=== PATIENT | female | born 1960 | race Hispanic/Latino ===

== ENCOUNTER 2023-07-18 11:45 | Emergency (ER) | payer MEDICARE, SELFPAY ==
[2023-07-18] VITALS (11 sets, daily range): BP systolic 123–160; BP diastolic 58–89; PULSE 67–87; RESP 14–23; TEMP 36.6; O2SAT 93–99; BMI 27.0
--- NOTE | 2023-07-18 11:57 | DI.RAD.S_ITS ---
PROCEDURE: XR CHEST 1V INDICATIONS: chest pain TECHNIQUE: One view of the chest was acquired. COMPARISON: None. FINDINGS: Surgical changes and devices: None. Lungs and pleura: Lungs are clear. No pleural effusions or pneumothorax. Mediastinum: Mediastinal contours appear normal. Heart size is normal. Bones and chest wall: No suspicious bony lesions. Overlying soft tissues appear unremarkable. IMPRESSION: Portable chest within normal limits for age. Dictated by: Jeannie Shaw M.D. on 07/18/2023 at 12:29 Approved by: Jeannie Shaw M.D. on 07/18/2023 at 12:29
[2023-07-18 12:57] LABS: Add Manual Diff / Slide Review NO; Basophils Absolute Auto 100 /uL (0-100); Basophils Percent Auto 0.3 % (0-2); Eosinophils Absolute Auto 100 /uL (0-450); Eosinophils Percent Auto 0.8 % (2-4); Hematocrit 43.6 % (36-46); Hemoglobin 14.5 g/dL (12.0-16.0); Lymphocytes Absolute Auto 3700 /uL (1100-4500); Lymphocytes Percent Auto 24.4 % (25-40); Mean Corpuscular HGB Conc 33.3 % (30-36); Mean Corpuscular Hemoglobin 28.1 PG (26-34); Mean Corpuscular Volume 84.2 fL (80-100); Monocytes Absolute Auto 1400 /uL (0-900); Monocytes Percent Auto 9.3 % (3-14); Neutrophils Absolute Auto 9900 /uL (1500-7000); Neutrophils Percent Auto 65.2 % (50-75); Platelet Count 301 X10^3/uL (150-400); Red Blood Cell Count 5.18 X10^6/uL (4.0-5.2); Red Cell Distribution Width 14.7 % (11.6-14.8); White Blood Cell Count 15.1 X10^3/uL (4.5-11.0)
[2023-07-18 12:59] LABS: INR 0.9 (0.9-1.3); Prothrombin Time 10.3 SECONDS (10.1-12.7)
[2023-07-18 13:01] LABS: PTT Partial Thromboplastin Tim 25 SECONDS (26-36)
[2023-07-18 13:05] LABS: Alanine Aminotransferase 18 IU/L (<35); Albumin Globulin Ratio 1.3 (1.0-2.8); Alkaline Phosphatase 78 U/L (38-126); Aspartate Aminotransferase 17 IU/L (14-36); BUN Creatinine Ratio 32.4 (6-22); Bilirubin Total 0.8 mg/dL (0.2-1.3); Blood Urea Nitrogen 35 mg/dL (7-17); Calcium 9.8 mg/dL (8.4-10.2); Carbon Dioxide 26 mmol/L (22-32); Chloride 102 mmol/L (98-107); Creatine Kinase 54 U/L (30-135); Estimated Glomerular Filt Rate 57 mL/min (>60); Globulin 3.2 g/dL (1.7-4.1); Glucose 152 mg/dL (80-110); HEMOLYSIS < 15 (0-50); Lipase 529 U/L (23-300); Magnesium 2.4 mg/dL (1.6-2.3); Potassium 3.4 mmol/L (3.4-5.1); Sodium 137 mmol/L (137-145); Total Protein 7.2 g/dL (6.3-8.2)
--- NOTE | 2023-07-18 13:05 | ED.HA ---
HPI - Headache General Chief Complaint: Weakness Stated Complaint: weakness Time Seen by Provider: 07/18/23 12:56 Mode of arrival: Ambulatory History of Present Illness HPI Narrative: Patient is a 63-year-old female history of coronary artery disease with 3 stents presenting today with sudden onset of headache. She reports that she was feeling well yesterday and this morning however read at 10:00 a.m. she felt sudden onset of headache in the back of her head. She feels generally weak all over her extremities. No fever or chills no sore throat no chest pain shortness of breath abdominal pain. She feels nauseous when the pain intensifies. She has not vomited. No numbness tingling or weakness no difficulty speaking no facial droop. No prior history of CVA. Related Data Allergies Allergy/AdvReac Type Severity Reaction Status Date / Time No Known Drug Allergies Allergy Verified 07/18/23 11:49 Review of Systems Review of Systems ROS Unobtainable: All systems reviewed & are unremarkable except as noted in HPI and below Patient History Social History Smoking Status: Current every day smoker Smoking Status: Current every day smoker Substance Use Type: does not use Exam Initial Vital Signs Initial Vital Signs: Vital Signs Temperature 97.9 F 07/18/23 11:49 Pulse Rate 87 07/18/23 11:49 Respiratory Rate 16 07/18/23 11:49 Blood Pressure 147/71 H 07/18/23 11:49 Pulse Oximetry 98 07/18/23 11:49 Oxygen Delivery Method Room Air 07/18/23 11:49 GENERAL: Alert 63-year-old female appears to not feel well HEENT: Head atraumatic,EOMI, pupils reactive, face symmetric, moist mucous membranes CARDIOVASCULAR: Regular rate and rhythm without murmurs, rubs or gallops. RESPIRATORY: Breath sounds equal bilaterally, no wheezes rales or rhonchi. ABDOMEN: Soft, nontender. Normoactive bowel sounds all 4 quadrants. No guarding or rebound. EXTREMITIES: Normal range of motion, no clubbing or edema. Neurovascularly intact NEUROLOGICAL: Alert and oriented x4.Normal gait and speech. Cranial nerves II through XII grossly intact. Diffusely weak but no obvious worsening weakness right versus left Good [id number], good [id number], strength equal bilaterally, no dysarthria or aphasia, sensation in tact to soft touch bilaterally, no visual changes, no facial droop SKIN: Warm, dry, no laceration, no petechiae, no rashes or lesions. Scores NIH Stroke Scale Level of Conciousness: Alert, keenly responsive Ask month/age: Answers both questions correctly. Open/close eyes, close hand: Performs both tasks correctly Best gaze horizontal: Normal Visual collado: No visual loss Facial palsy: Normal symetrical movement Left arm drift: No drift for full 10 sec Right arm drift: No drift for full 10 sec Left leg drift: No drift for full 5 sec Right leg drift: No drift for full 5 sec Limb ataxia: Absent Sensory on face/arms/legs: Normal, no sensory loss Best language: No aphasia, normal Dysarthria: Normal Extinction or inattention: No abnormality Total NIH Stroke scale score: 0 Course Orders Ordered: ED Orders 07/18/23 11:57 XR chest 1V Stat 07/18/23 12:10 EKG-12 Lead Stat 07/18/23 12:25 Complete Blood Count AUTO DIFF Stat Comprehensive Metabolic Panel Stat Lipase Stat Magnesium Stat PTT Partial Thromboplastin [place] Stat Prothrombin Time INR Stat Troponin & CK Cardiac Panel Stat 07/18/23 12:26 COVID19 -Nasal RAPID Stat 07/18/23 13:10 CT angio head and neck Stat CT head/brain wo con Stat Discontinued Medications Diphenhydramine HCl (Diphenhydramine 50 Mg/Ml Vial) 25 mg IV NOW ONE Stop: 07/18/23 12:57 Last Admin: 07/18/23 13:27 Dose: 25 mg Documented By: MELVIN Sodium Chloride (Normal Saline 0.9%) 1,000 mls @ 1,000 mls/hr IV BOLUS ONE Stop: 07/18/23 13:55 Last Infusion: 07/18/23 14:33 Dose: Infused Documented By: Admin: 07/18/23 13:32 Dose: 1,000 mls/hr Documented By: MELVIN Ketorolac Tromethamine (Ketorolac 30 Mg/Ml Vial) 15 mg IV NOW ONE Stop: 07/18/23 12:57 Last Admin: 07/18/23 13:29 Dose: 15 mg Documented By: MELVIN Prochlorperazine (Prochlorperazine 10 Mg/2 Ml Vial) 10 mg IV NOW ONE Stop: 07/18/23 12:57 Last Admin: 07/18/23 13:31 Dose: 10 mg Documented By: MELVIN Vital Signs Vital signs: Vital Signs - 8 hr 07/18/23 11:49 07/18/23 12:54 07/18/23 12:55 Temperature 97.9 F Pulse Rate 87 71 78 Respiratory Rate 16 15 14 Blood Pressure 147/71 H Pulse Oximetry 98 97 97 Oxygen Delivery Method Room Air 07/18/23 12:55 07/18/23 13:00 07/18/23 13:00 Temperature Pulse Rate 75 Respiratory Rate 21 Blood Pressure 146/89 H 139/76 Pulse Oximetry 96 Oxygen Delivery Method 07/18/23 13:30 07/18/23 13:40 07/18/23 13:40 Temperature Pulse Rate 74 78 Respiratory Rate 23 Blood Pressure 148/84 H Pulse Oximetry 99 97 Oxygen Delivery Method 07/18/23 14:00 07/18/23 14:00 07/18/23 14:30 Temperature Pulse Rate 78 Respiratory Rate Blood Pressure 160/73 H 144/67 H Pulse Oximetry 96 Oxygen Delivery Method 07/18/23 14:30 07/18/23 15:00 07/18/23 15:00 Temperature Pulse Rate 73 68 Respiratory Rate 17 16 Blood Pressure 137/65 Pulse Oximetry 95 94 Oxygen Delivery Method 07/18/23 15:30 07/18/23 15:30 07/18/23 16:00 Temperature Pulse Rate 75 Respiratory Rate 16 Blood Pressure 125/61 123/58 L Pulse Oximetry 93 Oxygen Delivery Method 07/18/23 16:00 Temperature Pulse Rate 67 Respiratory Rate 15 Blood Pressure Pulse Oximetry 94 Oxygen Delivery Method MDM - Headache Lab Data 07/18/23 12:25 07/18/23 12:25 Labs: Lab Results 07/18/23 07/18/23 Range/Units 12:25 12:26 WBC 15.1 H (4.5-11.0) X10^3/uL RBC 5.18 (4.0-5.2) X10^6/uL Hgb 14.5 (12.0-16.0) g/dL Hct 43.6 (36-46) % MCV 84.2 (80-100) fL MCH 28.1 (26-34) PG MCHC 33.3 (30-36) % RDW 14.7 (11.6-14.8) % Plt Count 301 (150-400) X10^3/uL Neut % (Auto) 65.2 (50-75) % Lymph % (Auto) 24.4 L (25-40) % [place] % (Auto) 9.3 (3-14) % Eos % (Auto) 0.8 L (2-4) % Baso % (Auto) 0.3 (0-2) % Neut # (Auto) 9900 H (3522-0800) /uL Lymph # (Auto) 3700 (6921-6224) /uL [place] # (Auto) 1400 H (0-900) /uL Eos # (Auto) 100 (0-450) /uL Baso # (Auto) 100 (0-100) /uL PT 10.3 (10.1-12.7) SECONDS INR 0.9 (0.9-1.3) APTT 25 L (26-36) SECONDS Sodium 137 (137-145) mmol/L Potassium 3.4 (3.4-5.1) mmol/L Chloride 102 (98-107) mmol/L Carbon Dioxide 26 (22-32) mmol/L BUN 35 H (7-17) mg/dL Creatinine 1.08 H (0.52-1.04) mg/dL Estimated GFR 57 L (>60) mL/min BUN/Creatinine Ratio 32.4 H (6-22) Glucose 152 H (80-110) mg/dL Calcium 9.8 (8.4-10.2) mg/dL Magnesium 2.4 H (1.6-2.3) mg/dL Total Bilirubin 0.8 (0.2-1.3) mg/dL AST 17 (14-36) IU/L ALT 18 (<35) IU/L Alkaline Phosphatase 78 (38-126) U/L Total Creatine Kinase 54 (30-135) U/L Troponin I < 0.012 (0.01-0.034) ng/mL Total Protein 7.2 (6.3-8.2) g/dL Albumin 4.0 (3.5-5.0) g/dL Globulin 3.2 (1.7-4.1) g/dL Albumin/Globulin Ratio 1.3 (1.0-2.8) Lipase 529 H (23-300) U/L SARS-CoV-2 (PCR) Negative (Negative) Imaging Data Chest x-ray: Radiologist's Impression: PROCEDURE: XR CHEST 1V INDICATIONS: chest pain TECHNIQUE: One view of the chest was acquired. COMPARISON: None. FINDINGS: Surgical changes and devices: None. Lungs and pleura: Lungs are clear. No pleural effusions or pneumothorax. Mediastinum: Mediastinal contours appear normal. Heart size is normal. Bones and chest wall: No suspicious bony lesions. Overlying soft tissues appear unremarkable. IMPRESSION: Portable chest within normal limits for age. Dictated by: Jeannie Shaw M.D. on 07/18/2023 at 12:29 CT scan - chest: Radiologist's Impression: PROCEDURE: CT ANGIO HEAD AND NECK INDICATIONS: headache with weakness TECHNIQUE: After the administration of intravenous contrast, 1 mm thick sections acquired from the aortic arch through the [place]. MIP reformats of the arterial vasculature were utilized. For radiation dose reduction, the following was used: automated exposure control, adjustment of mA and/or kV according to patient size. COMPARISON: None. FINDINGS: Cerebral CT Angiogram: Internal carotid arteries: No acute findings. Intracranial ICA are patent with no significant stenosis. No occlusion. No aneurysm. Anterior cerebral arteries: Unremarkable. No significant stenosis. No occlusion. No aneurysm. Middle cerebral arteries: Unremarkable. No significant stenosis. No occlusion. No aneurysm. Posterior cerebral arteries: Unremarkable. No significant stenosis. No occlusion. No aneurysm. Basilar artery: Unremarkable. No significant stenosis. No occlusion. No aneurysm. Vertebral arteries: Unremarkable as visualized. Dural venous sinuses: Unremarkable given phase of enhancement. Other: Arterial phase brain parenchyma is unremarkable. Neck CT Angiogram: Internal carotid arteries: Atherosclerotic plaque in left proximal internal carotid artery without hemodynamically significant stenosis utilizing NASCET criteria Common carotid arteries: Unremarkable. No significant stenosis. No dissection or occlusion. External carotid arteries: Unremarkable. No occlusion. Vertebral arteries: Moderate stenosis noted at the origin the left vertebral artery. Go dominance. Other: None. Aortic Arch and Mediastinum: Partially visualized aortic arch unremarkable without evidence of aneurysm. Origins of the great vessels unremarkable. IMPRESSION: 1. Atherosclerotic plaque in the proximal left ICA without stenosis utilizing NASCET criteria. 2. No intracranial large vessel occlusion, aneurysm or vascular malformation Note: If present, proximal ICA stenosis was calculated using NASCET guidelines. Approved by: Shaun Cespedes M.D. on 07/18/2023 at 13:00 CT scan - head: Radiologist's Impression: PROCEDURE: CT HEAD/BRAIN WO CON INDICATIONS: sudden onset headache TECHNIQUE: Noncontrast 4.5 mm thick angled axial sections acquired from the foramen magnum to the vertex, with coronal and sagittal reformats. For radiation dose reduction, the following was used: automated exposure control, adjustment of mA and/or kV according to patient size. COMPARISON: None. FINDINGS: Image quality: Excellent. CSF spaces: Basal cisterns are patent. No extra-axial fluid collections. Ventricles are normal in size and shape. Brain: No midline shift. No intracranial masses or hemorrhage. [place]-white matter interface is normal. Atrophy and moderate multifocal white matter chronic ischemic change. Old cortical infarct noted in the left occipital cuneus. Skull and face: Calvarium and visualized facial bones are intact, without suspicious lesions. Sinuses: Visualized sinuses and mastoids are clear. IMPRESSION: Atrophy and moderate white matter chronic ischemic change. Old left occipital infarct Approved by: Shaun Cespedes M.D. on 07/18/2023 at 12:54 ECG Data Interpretation: Sinus rhythm rate 84 NV interval 148 QRS [address] changes or T-wave inversions MDM Narrative Medical decision making narrative: Patient healthy 63-year-old female presents with sudden onset of headache. She does not typically get headaches she is diffusely weak all over slightly weaker on the right by NIH age stroke scale is 0. Blood work has been reviewed in his overall reassuring without any clinical significant abnormalities. CT head noncontrast does not show intracranial hemorrhage CT angio does show atherosclerotic plaque in proximal left ICA without stenosis. Patient given migraine cocktail she slept for awhile she is overall feeling significantly better. Discharge Plan Departure Patient Disposition: Home Clinical Impression: Headache, migraine Instructions: Migraine -- Adult Activity Restrictions/Additional Instructions: *You have been diagnosed with migraine *What to do: At this time go home and rest please stay hydrated take all medication as directed *Continue to take medications as directed *Follow up with your primary care provider in 2-3 days or call [phone] *Return to ER if you should have facial droop difficulty speaking weakness numbness tingling dizziness or any new, worsening or concerning symptoms Stand Alone Forms: Patient Portal/API
--- NOTE | 2023-07-18 13:10 | DI.CT.S_ITS ---
PROCEDURE: CT HEAD/BRAIN WO CON INDICATIONS: sudden onset headache TECHNIQUE: Noncontrast 4.5 mm thick angled axial sections acquired from the foramen magnum to the vertex, with coronal and sagittal reformats. For radiation dose reduction, the following was used: automated exposure control, adjustment of mA and/or kV according to patient size. COMPARISON: None. FINDINGS: Image quality: Excellent. CSF spaces: Basal cisterns are patent. No extra-axial fluid collections. Ventricles are normal in size and shape. Brain: No midline shift. No intracranial masses or hemorrhage. [place]-white matter interface is normal. Atrophy and moderate multifocal white matter chronic ischemic change. Old cortical infarct noted in the left occipital cuneus. Skull and face: Calvarium and visualized facial bones are intact, without suspicious lesions. Sinuses: Visualized sinuses and mastoids are clear. IMPRESSION: Atrophy and moderate white matter chronic ischemic change. Old left occipital infarct Approved by: Shaun Cespedes M.D. on 07/18/2023 at 12:54
--- NOTE | 2023-07-18 13:10 | DI.CT.S_ITS ---
PROCEDURE: CT ANGIO HEAD AND NECK INDICATIONS: headache with weakness TECHNIQUE: After the administration of intravenous contrast, 1 mm thick sections acquired from the aortic arch through the [place] of [place]. MIP reformats of the arterial vasculature were utilized. For radiation dose reduction, the following was used: automated exposure control, adjustment of mA and/or kV according to patient size. COMPARISON: None. FINDINGS: Cerebral CT Angiogram: Internal carotid arteries: No acute findings. Intracranial ICA are patent with no significant stenosis. No occlusion. No aneurysm. Anterior cerebral arteries: Unremarkable. No significant stenosis. No occlusion. No aneurysm. Middle cerebral arteries: Unremarkable. No significant stenosis. No occlusion. No aneurysm. Posterior cerebral arteries: Unremarkable. No significant stenosis. No occlusion. No aneurysm. Basilar artery: Unremarkable. No significant stenosis. No occlusion. No aneurysm. Vertebral arteries: Unremarkable as visualized. Dural venous sinuses: Unremarkable given phase of enhancement. Other: Arterial phase brain parenchyma is unremarkable. Neck CT Angiogram: Internal carotid arteries: Atherosclerotic plaque in left proximal internal carotid artery without hemodynamically significant stenosis utilizing NASCET criteria Common carotid arteries: Unremarkable. No significant stenosis. No dissection or occlusion. External carotid arteries: Unremarkable. No occlusion. Vertebral arteries: Moderate stenosis noted at the origin the left vertebral artery. Go dominance. Other: None. Aortic Arch and Mediastinum: Partially visualized aortic arch unremarkable without evidence of aneurysm. Origins of the great vessels unremarkable. IMPRESSION: 1. Atherosclerotic plaque in the proximal left ICA without stenosis utilizing NASCET criteria. 2. No intracranial large vessel occlusion, aneurysm or vascular malformation Note: If present, proximal ICA stenosis was calculated using NASCET guidelines. Approved by: Shaun Cespedes M.D. on 07/18/2023 at 13:00
[2023-07-18 13:14] LABS: Troponin I < 0.012 ng/mL (0.01-0.034)
[2023-07-18 13:21] LABS: COVID19 -Nasal RAPID Negative (Negative)
[2023-07-18] MEDS: diphenhydrAMINE 50 MG/ML VIAL 25 MG IV (13:27)
[2023-07-18] MEDS: KETOROLAC 30 MG/ML VIAL 15 MG IV (13:29)
[2023-07-18] MEDS: PROCHLORPERAZINE 10 MG/2 ML VIAL IV (13:31)
[2023-07-18] MEDS: SODIUM CHLORIDE 0.9% 1,000 ML 1000 ML IV (13:32)
== END 2023-07-18 16:28 | disposition home or self-care (01) ==
PROVIDERS: Emergency Provider Emergency Medicine
DX: G43.909 Migraine, unspecified, not intractable, without status migrainosus (principal); R07.9 Chest pain, unspecified; Z20.822 Contact with and (suspected) exposure to COVID-19
CPT/HCPCS: 36415; 70450; 70496; 70498; 71045; 80053; 82550; 83690; 83735; 84484; 85025; 85610; 85730; 87635; 93005; 93010; 96361; 96374; 96375; 99284; C9803; J0780; J1200; J1885; Q9967